=== PATIENT | male | born 2000 | race Caucasian/White ===

== ENCOUNTER 2021-08-09 09:08 | Emergency (ER) | payer SELFPAY ==
[2021-08-09] MEDS ORDERED: IBUPROFEN600 MG PO (10:25)
[2021-08-09] MEDS ORDERED: BACTROBAN OINT22 GM EXT (10:25)
== END 2021-08-09 10:43 | disposition home or self-care (01) ==
LOC: ER1 09:08
DX: S60.470A Other superficial bite of right index finger, initial encounter (principal); W54.0XXA Bitten by dog, initial encounter; Y92.89 Other specified places as the place of occurrence of the external cause; Y99.0 Civilian activity done for income or pay
CPT/HCPCS: 90471; 90714; 99283